=== PATIENT | female | born 1980 | race African-American/Black ===

== ENCOUNTER → 2018-09-06 18:03 | Outpatient (CLI) | payer OTHER, SELFPAY ==
--- NOTE | 2018-09-06 | DI.MRI.S_ITS ---
PROCEDURE: MR HEAD/BRAIN WO CON INDICATIONS: Headache TECHNIQUE: Noncontrast axial T1 spin echo, axial T2 fast spin echo, sagittal and axial FLAIR, coronal T2 fast spin echo, axial gradient echo, axial diffusion and ADC through the brain. COMPARISON: None. FINDINGS: Image quality: Excellent. CSF Spaces: Basal cisterns are patent. No extra-axial fluid collections. Ventricles are normal in size and shape. Brain: No intracranial masses or hemorrhage. Olivares/white matter interface is normal. Brainstem appears normal. Diffusion-weighted images demonstrate no acute ischemic insult. No areas of encephalomalacia. A single, ovoid focus of increased T2 signal is noted in the left frontal subcortical white matter. Single, round, punctate focus of increased T2 signal noted in the right frontal subcortical white matter. No GRE weighted abnormalities are identified in the brain parenchyma. Normal intravascular flow voids are present. Skull and face: Calvarium has normal marrow signal. Orbits appear normal. Sinuses: Sinuses and mastoids are clear. IMPRESSION: 1. Small, single, nonspecific foci of increased T2 signal in the right and left frontal subcortical white matter. 2. Otherwise, normal MRI of the brain. Dictated by: Britta Maddox MD, PhD on 09/09/2018 at 8:37 Approved by: Britta Maddox MD, PhD on 09/09/2018 at 8:51
== END ==
PROVIDERS: Visit Provider Specialist
DX: R51 Headache (principal)
CPT/HCPCS: 70551